=== PATIENT | female | born 1955 | race Caucasian/White ===

== ENCOUNTER 2016-06-28 16:38 | Emergency (ER) | payer SELFPAY ==
[2016-06-28 17:05] LABS: #Basophils 0.1 thou/uL (0.0-0.2); #Eosinphils 0.3 thou/uL (0.0-0.7); #Lymphocytes 2.6 thou/uL (1.20-3.40); #Monocytes 0.7 thou/uL (0.11-0.59); #Neutrophils 3.7 thou/uL (1.40-6.50); %Basophils 0.9 % (0.0-1.0); %Eosinophils 3.5 % (0.0-10.0); %Monocytes 9.6 % (0.0-10.0); Mean Platelet Volume 5.9 fL (7.4-10.4); Red Blood Cell (RBC) Count 4.38 mill/uL (4.20-5.40); White Blood Cell (WBC) Count 7.3 thou/uL (4.8-10.8)
[2016-06-28 17:20] LABS: ALT (SGPT) 9 U/L (0-55); AST (SGOT) 16 U/L (5-34); Alkaline Phosphatase 94 U/L (40-150); Anion Gap 13 mmol/L (10-20); BUN (Urea Nitrogen) 13 mg/dL (9.8-20.1); Bilirubin, Total 0.3 mg/dL (0.2-1.2); CK (CPK) 68 U/L (29-168); Calc. Creatinine Clearance 0 mL/min (70-130); Calcium 9.4 mg/dL (7.8-10.44); Carbon Dioxide 26 mmol/L (23-31); Chloride 106 mmol/L (98-107); Estimated GFR-MDRD 45; Globulin 3.1 g/dL (2.4-3.5); Protein, Total 7.2 g/dL (5.8-8.1)
[2016-06-28 17:22] LABS: Troponin I 0.026 ng/mL (< 0.028)
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
--- NOTE | 2016-06-28 23:37 | RAD ---
PORTABLE CHEST: Date: 06-28-16 An AP portable film at 1655 is compared with 01-10-16 study. FINDINGS: COPD is present with flattening of the diaphragm. The lungs are clear. No infiltrate or effusion w as present. There is no congestion of vessels. Median sternotomy features alphonso prior surgery. The tracheal is midline. IMPRESSION: No acute thoracic findings. COPD. POS: HOME
== END 2016-06-28 17:39 | disposition home or self-care (01) ==
LOC: BURERS 16:38
DX: R06.00 Dyspnea, unspecified (principal); E78.5 Hyperlipidemia, unspecified; I10 Essential (primary) hypertension; F17.210 Nicotine dependence, cigarettes, uncomplicated; Z98.51 Tubal ligation status
CPT/HCPCS: 36415; 71010; 80053; 82550; 82553; 84484; 85025; 93005; 94760

== ENCOUNTER 2019-06-06 12:26 | Emergency (ER) | payer SELFPAY ==
[2019-06-06] MEDS ORDERED: HYDROcodone/Acetaminophen 5/325 mg Tablet ONE (12:51)
[2019-06-06] MEDS ORDERED: Ibuprofen 200 MG TAB ONE (12:52)
--- NOTE | 2019-06-06 17:40 | RAD ---
RIGHT SHOULDER THREE VIEWS: 06/06/19 An impacted fracture of the surgical neck of the humerus is noted as well as a fracture of the greate r tubercle. Neither of these were present on a chest x-ray done earlier this year. There is no disloc ation. There is no AC joint widening. IMPRESSION: Impacted humeral neck fracture and greater tubercle fracture. Findings discussed with Dr. Bourgeois at 1313 on 06/06/19. POS: HOME
== END 2019-06-06 13:26 | disposition home or self-care (01) ==
LOC: BURERS 12:26
DX: S42.214A Unspecified nondisplaced fracture of surgical neck of right humerus, initial encounter for closed fracture (principal); I10 Essential (primary) hypertension; F17.210 Nicotine dependence, cigarettes, uncomplicated; I25.2 Old myocardial infarction; I25.10 Atherosclerotic heart disease of native coronary artery without angina pectoris; Z86.73 Personal history of transient ischemic attack (TIA), and cerebral infarction without residual deficits; W01.0XXA Fall on same level from slipping, tripping and stumbling without subsequent striking against object, initial encounter

== ENCOUNTER 2019-06-09 12:59 | Emergency (ER) | payer SELFPAY ==
[2019-06-09 14:19] LABS: #Eosinphils 0.3 thou/uL (0.0-0.7); #Lymphocytes 1.3 thou/uL (1.20-3.40); #Monocytes 0.7 thou/uL (0.11-0.59); #Neutrophils 5.2 thou/uL (1.40-6.50); %Basophils 0.6 % (0.0-1.0); %Eosinophils 3.4 % (0.0-10.0); %Lymphocytes 17.4 % (21.0-51.0); %Monocytes 9.7 % (0.0-10.0); %Neutrophils 68.9 % (42.0-75.0); Mean Corpuscular HGB CONC 33.7 g/dL (32.0-36.0); Mean Corpuscular Hemoglobin 33.1 pg (27.0-31.0); Mean Corpuscular Volume 98.3 fL (78.0-98.0); Platelet Count 285 thou/uL (130-400); RBC Distribution Width 12.5 % (11.5-14.5); Red Blood Cell (RBC) Count 3.92 mill/uL (4.20-5.40); White Blood Cell (WBC) Count 7.5 thou/uL (4.8-10.8)
[2019-06-09 14:33] LABS: ALT (SGPT) 9 U/L (8-55); AST (SGOT) 17 U/L (5-34); Albumin 3.7 g/dL (3.4-4.8); Alkaline Phosphatase 85 U/L (40-110); Anion Gap 15 mmol/L (10-20); BUN (Urea Nitrogen) 23 mg/dL (9.8-20.1); Bilirubin, Total 0.6 mg/dL (0.2-1.2); Calc. Creatinine Clearance 0 mL/min (70-130); Carbon Dioxide 21 mmol/L (23-31); Chloride 105 mmol/L (98-107); Estimated GFR-MDRD 34; Globulin 2.8 g/dL (2.4-3.5); Glucose 100 mg/dL (80-115); Protein, Total 6.5 g/dL (6.0-8.3); Sodium 137 mmol/L (136-145)
[2019-06-09 14:42] LABS: Bilirubin Small (Negative); Blood, Urine Small (Negative); Clarity Slightly Cloudy (Clear); Glucose, Urine (Dipstick) Negative (Negative); Leukocyte Negative (Negative); Nitrite Negative (Negative); Protein, Urine (Dipstick) 30 mg/dL (Neg-Trace)
[2019-06-09 14:56] LABS: Bacteria/HPF Rare-Few HPF (None Seen); Epithelial Cast None Seen LPF (None Seen); Mucous/LPF 1+ LPF (<2+); Oval Fat Bodies/HPF None Seen HPF (None Seen); RBC/HPF 0-3 HPF (0-3); Renal Epithelial 0-3 HPF (None Seen); Sperm/HPF None Seen HPF (None Seen); Squamous Epithelial None Seen HPF (0-3); Transitional Epithelial None Seen HPF (None Seen); Trichomonas/HPF None Seen HPF (None Seen); Yeast-Budding None Seen HPF (None Seen); Yeast-Hyphae None Seen HPF (None Seen)
[2019-06-09 14:57] LABS: Broad Cast None Seen LPF (None Seen); Calcium Oxalate Crystals None Seen HPF (None Seen); Cellular Cast None Seen LPF (None Seen); Fatty Cast None Seen LPF (None Seen); Other Casts None Seen LPF (None Seen); Red Blood Cell Cast None Seen LPF (None Seen); Triple Phosphate Crystal None Seen HPF (None Seen); Unclassified Crystals None Seen HPF (None Seen); Waxy Cast None Seen LPF (None Seen); White Blood Cell Cast 0-3 LPF (None Seen)
--- NOTE | 2019-06-09 16:46 | CT ---
CT OF THE BRAIN WITHOUT CONTRAST: 06/09/19 Comparison is made with the prior study dated 11/23/15. There has been no significant interval change. Patchy hyperlucency is seen throughout the deep white matter consistent with chronic microvascular ischemia. There are a few areas that are more punctate h ypolucencies, particularly around the left basal ganglia, left insula and left thalamus, that are mos t likely small lacunar infarcts. These were all present before. There is no intracranial bleeding or mass. The skull appears intact and the visible paranasal sinuses are clear. A small ovoid lucency in the left occipital bone is longstanding and has not changed over time. It is of no concern. IMPRESSION: Chronic ischemic changes as noted but no acute intracranial findings. A subtle acute stroke would be missed by this study and best detected by MRI. POS: HOME
--- NOTE | 2019-06-09 16:48 | RAD ---
PORTABLE CHEST: 06/09/19 An AP portable film at 1410 is compared with a 09/10/18 study. The heart is normal in size and the lungs are clear. They are mildly hyperexpanded as usual. There is no focal infiltrate or effusion present. IMPRESSION: No acute thoracic findings. POS: HOME
== END 2019-06-09 15:30 | disposition home or self-care (01) ==
LOC: BURERS 12:59
DX: N39.0 Urinary tract infection, site not specified (principal); N28.9 Disorder of kidney and ureter, unspecified; S40.021D Contusion of right upper arm, subsequent encounter; R41.82 Altered mental status, unspecified; I25.10 Atherosclerotic heart disease of native coronary artery without angina pectoris; E78.5 Hyperlipidemia, unspecified; I10 Essential (primary) hypertension; F17.210 Nicotine dependence, cigarettes, uncomplicated; Z79.899 Other long term (current) drug therapy; Z86.73 Personal history of transient ischemic attack (TIA), and cerebral infarction without residual deficits
CPT/HCPCS: 51701; 70450; 71045; 80053; 81003; 81015; 84484; 85025; 93005; 94760; 96360

== ENCOUNTER 2019-06-13 13:31 | Emergency (ER) | payer SELFPAY ==
[2019-06-13 14:11] LABS: #Eosinphils 0.3 thou/uL (0.0-0.7); #Monocytes 0.7 thou/uL (0.11-0.59); #Neutrophils 5.5 thou/uL (1.40-6.50); %Basophils 0.4 % (0.0-1.0); %Eosinophils 3.4 % (0.0-10.0); %Lymphocytes 13.6 % (21.0-51.0); %Monocytes 8.9 % (0.0-10.0); %Neutrophils 73.8 % (42.0-75.0); Hemoglobin 12.8 g/dL (12.0-16.0); Mean Corpuscular HGB CONC 33.5 g/dL (32.0-36.0); Mean Corpuscular Volume 95.7 fL (78.0-98.0); Mean Platelet Volume 5.6 fL (7.4-10.4); Platelet Count 252 thou/uL (130-400); RBC Distribution Width 12.5 % (11.5-14.5); Red Blood Cell (RBC) Count 3.99 mill/uL (4.20-5.40); White Blood Cell (WBC) Count 7.5 thou/uL (4.8-10.8)
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
[2019-06-13 14:23] LABS: ALT (SGPT) 9 U/L (8-55); AST (SGOT) 16 U/L (5-34); Albumin 3.7 g/dL (3.4-4.8); Alkaline Phosphatase 104 U/L (40-110); Anion Gap 19 mmol/L (10-20); BUN (Urea Nitrogen) 15 mg/dL (9.8-20.1); Bilirubin, Total 0.6 mg/dL (0.2-1.2); Calc. Creatinine Clearance 0 mL/min (70-130); Calcium 9.3 mg/dL (7.8-10.44); Carbon Dioxide 22 mmol/L (23-31); Chloride 104 mmol/L (98-107); Estimated GFR-MDRD 64; Globulin 3.2 g/dL (2.4-3.5); Glucose 95 mg/dL (80-115); Potassium 3.7 mmol/L (3.5-5.1); Protein, Total 6.9 g/dL (6.0-8.3); Sodium 141 mmol/L (136-145)
--- NOTE | 2019-06-13 14:53 | RAD ---
RIGHT FOOT RADIOGRAPH THREE VIEWS: 06/13/2019 HISTORY: A 64-year-old female with forefoot pain. FINDINGS: No fracture, periostitis or destructive osseous lesion identified. No high grade DJD. There is diffus e osteopenia. IMPRESSION: 1. Osteopenia. 2. Otherwise negative. POS: JUAN
== END 2019-06-13 14:40 | disposition home or self-care (01) ==
LOC: BURERS 13:31
DX: S00.31XA Abrasion of nose, initial encounter (principal); S00.211A Abrasion of right eyelid and periocular area, initial encounter; S00.81XA Abrasion of other part of head, initial encounter; Z86.73 Personal history of transient ischemic attack (TIA), and cerebral infarction without residual deficits; I25.10 Atherosclerotic heart disease of native coronary artery without angina pectoris; E78.5 Hyperlipidemia, unspecified; I10 Essential (primary) hypertension; F17.210 Nicotine dependence, cigarettes, uncomplicated; Z79.899 Other long term (current) drug therapy; W19.XXXA Unspecified fall, initial encounter
CPT/HCPCS: 36415; 70450; 80053; 84484; 85025; 93005

== ENCOUNTER 2019-11-13 09:09 | Emergency (ER) | payer MEDICARE ==
[2019-11-13 09:46] LABS: #Eosinphils 0.1 thou/uL (0.0-0.7); #Lymphocytes 1.4 thou/uL (1.20-3.40); #Monocytes 0.5 thou/uL (0.11-0.59); #Neutrophils 2.9 thou/uL (1.40-6.50); %Basophils 0.8 % (0.0-1.0); %Eosinophils 1.7 % (0.0-10.0); %Lymphocytes 28.6 % (21.0-51.0); %Monocytes 10.2 % (0.0-10.0); %Neutrophils 58.8 % (42.0-75.0); Hemoglobin 13.6 g/dL (12.0-16.0); Mean Corpuscular Hemoglobin 32.5 pg (27.0-31.0); Mean Corpuscular Volume 98.3 fL (78.0-98.0); Platelet Count 135 thou/uL (130-400); RBC Distribution Width 12.1 % (11.5-14.5); Red Blood Cell (RBC) Count 4.18 mill/uL (4.20-5.40); White Blood Cell (WBC) Count 4.9 thou/uL (4.8-10.8)
[2019-11-13 09:56] LABS: ALT (SGPT) 8 U/L (8-55); AST (SGOT) 20 U/L (5-34); Albumin 3.9 g/dL (3.4-4.8); Alkaline Phosphatase 77 U/L (40-110); Anion Gap 13 mmol/L (10-20); BUN (Urea Nitrogen) 18 mg/dL (9.8-20.1); Bilirubin, Total 0.5 mg/dL (0.2-1.2); Calc. Creatinine Clearance 0 mL/min (70-130); Carbon Dioxide 24 mmol/L (23-31); Chloride 106 mmol/L (98-107); Estimated GFR-MDRD 58; Globulin 2.7 g/dL (2.4-3.5); Glucose 94 mg/dL (80-115); Protein, Total 6.6 g/dL (6.0-8.3); Sodium 139 mmol/L (136-145)
--- NOTE | 2019-11-13 10:08 | RAD ---
SINGLE VIEW OF THE CHEST: COMPARISON: 06/09/2019. HISTORY: Dyspnea. FINDINGS: A single view of the chest shows a normal-sized cardiomediastinal silhouette. The patient is status post sternotomy. Hyperexpansion of the lungs may be secondary to COPD. There is no evidence of cons olidation, mass, or pleural effusion. IMPRESSION: No evidence of acute cardiopulmonary disease. POS: EAA
== END 2019-11-13 10:49 | disposition home or self-care (01) ==
LOC: BURERS 09:09
DX: I95.1 Orthostatic hypotension (principal); I25.10 Atherosclerotic heart disease of native coronary artery without angina pectoris; E78.5 Hyperlipidemia, unspecified; I10 Essential (primary) hypertension; I25.2 Old myocardial infarction; F17.210 Nicotine dependence, cigarettes, uncomplicated; Z79.899 Other long term (current) drug therapy; Z86.73 Personal history of transient ischemic attack (TIA), and cerebral infarction without residual deficits
CPT/HCPCS: 36415; 71045; 80053; 83880; 84484; 85025; 93005

== ENCOUNTER 2020-03-25 14:19 | Emergency (ER) | payer MEDICARE ==
[~2020-03-25 14:19] MED LIST: Iopamidol 370 76% 100 ML VIAL ONE
[2020-03-25 15:25] LABS: #Basophils 0.1 thou/uL (0.0-0.2); #Eosinphils 0.2 thou/uL (0.0-0.7); #Lymphocytes 1.7 thou/uL (1.20-3.40); #Monocytes 0.5 thou/uL (0.11-0.59); #Neutrophils 3.4 thou/uL (1.40-6.50); %Basophils 1.1 % (0.0-1.0); %Eosinophils 2.6 % (0.0-10.0); %Monocytes 8.6 % (0.0-10.0); %Neutrophils 58.7 % (42.0-75.0); Hemoglobin 14.9 g/dL (12.0-16.0); Mean Corpuscular HGB CONC 31.2 g/dL (32.0-36.0); Mean Corpuscular Hemoglobin 31.2 pg (27.0-31.0); Mean Platelet Volume 6.5 fL (7.4-10.4); Platelet Count 169 thou/uL (130-400); RBC Distribution Width 12.6 % (11.5-14.5); Red Blood Cell (RBC) Count 4.79 mill/uL (4.20-5.40); White Blood Cell (WBC) Count 5.9 thou/uL (4.8-10.8)
[2020-03-25 15:28] LABS: Bilirubin Negative (Negative); Blood, Urine Trace (Negative); Clarity Cloudy (Clear); Glucose, Urine (Dipstick) Negative (Negative); Ketone, Urine Negative (Negative); Leukocyte Negative (Negative); Nitrite Negative (Negative); Protein, Urine (Dipstick) Trace mg/dL (Neg-Trace); Specific Gravity, Urine 1.025 (1.005-1.030)
[2020-03-25] MEDS ORDERED: Ondansetron PF 4 MG/2 ML Vial ONE (15:38)
[2020-03-25] MEDS ORDERED: Morphine 4 MG/ML VIAL ONE (15:38)
[2020-03-25 15:43] LABS: ALT (SGPT) 13 U/L (8-55); AST (SGOT) 16 U/L (5-34); Albumin 4.2 g/dL (3.4-4.8); Alkaline Phosphatase 107 U/L (40-110); Anion Gap 16 mmol/L (10-20); BUN (Urea Nitrogen) 14 mg/dL (9.8-20.1); Bilirubin, Total 0.4 mg/dL (0.2-1.2); Calc. Creatinine Clearance 0 mL/min (70-130); Calcium 9.3 mg/dL (7.8-10.44); Carbon Dioxide 26 mmol/L (23-31); Chloride 103 mmol/L (98-107); Estimated GFR-MDRD 57; Globulin 3.4 g/dL (2.4-3.5); Glucose 99 mg/dL (80-115); Lipase 23 U/L (8-78); Potassium 5.1 mmol/L (3.5-5.1); Protein, Total 7.6 g/dL (6.0-8.3); Sodium 140 mmol/L (136-145)
[2020-03-25 15:49] LABS: Bacteria/HPF 3+ HPF (None Seen); RBC/HPF 0-3 HPF (0-3); Squamous Epithelial 0-3 HPF (0-3)
[2020-03-25] MEDS ORDERED: Nitroglycerin 2% Ointment 1 INCH/1 GM Packet ONE (16:59)
[2020-03-25] MEDS ORDERED: Aspirin Chewable 81 MG TAB ONE ×3 (16:59)
--- NOTE | 2020-03-25 19:44 | RAD ---
PORTABLE CHEST: Date: 03-25-2020 An AP portable film at 1538 is compared with prior studies dated 11-13-2019, 06-09-19, and 09-10-18. FINDINGS: The lungs are mildly hyperexpanded as usual. There is no lobar infiltrate or effusion. There is some mild diffuse prominence of lung markings that has not really changed over time. There is an equivocal density in the left upper lobe that is about 1 cm in size occurring at the over lap of several structures. I cannot tell if this is a small nodule in the lung, or merely overlap of multiple bony structures. I do not see anything like it on the prior three films, even in retrospect. The heart size is normal. Median sternotomies are present from prior surgery. There is no vascular c ongestion, edema, or effusion. IMPRESSION: 1. No definite acute findings. 2. Equivocal 1 cm density in the left upper lobe, not present on prior films. It is at the overlap si te of several bones so it is likely a summation shadow. Nevertheless, I feel there should be at least a follow up PA film done electively on this patient, to be certain. Code T POS: HOME
--- NOTE | 2020-03-25 20:06 | CT ---
CT ABDOMEN PELVIS WITH CONTRAST: Date: 03-25-[address] of the abdomen and pelvis was done after giving IV contrast. Comparison: 09-17-15 FINDINGS: As will be seen below, there are many soft findings on this patient's CT scan, however, virtually pre sent to some degree in 2016. The differences between the two scans is only slight. There is no lobar infiltrate or effusion in the lung bases. Some atelectatic change and perhaps fibro sis is present. The liver, spleen, adrenal glands, and kidneys showed no acute findings. There may be some sludge in the gallbladder, however, its appearance is exactly the same as before. Ultrasound wo uld be confirmatory. Additionally regarding the pancreas, the main pancreatic duct is mildly prominen t in size. Previously it was about 3 mm in diameter and today it was measured at 3.9 mm. One could se e it traveling all the way to the duodenum. The duodenum itself suggests that there may be some mild thickening here and it is fluid filled, however, this appearance is really no different than before e ither. The aorta shows dense arterial sclerotic calcification with increasing plaque and thrombus for mation compared to the prior exam. There is probably some significant plaque at the origin of the mes enteric arteries and in their proximal segments. There is some nonspecific fluid filled loops of distal small bowel, but none are significantly dilate d to suggest obstruction. The colon shows no dilation or wall thickening. No free air or free fluid w as present. CT of the pelvis shows no pelvic masses, fluid collections, or inflammatory changes. The visible bony structures appeared intact. IMPRESSION: 1. Possible sludge in the gallbladder, but exam seems no different in appearance compared to 2016. 2. Mild prominence of the pancreatic duct, though one could argue it was marginally so in 2016. It wa s about 3 mm wide before and about 3.9 mm today. 3. Nonspecific fluid filled loops of small bowel without dilation. Overall, changes since 2016 are only slight. Further follow up could be needed depending upon labs an d clinical symptoms. Report discussed with Dr. Conroy at 1627 on 03-25-2020. POS: HOME
== END 2020-03-25 17:16 | disposition short-term general hospital (02) ==
LOC: BURERS 14:19
DX: R07.89 Other chest pain (principal); R79.89 Other specified abnormal findings of blood chemistry; E78.5 Hyperlipidemia, unspecified; I10 Essential (primary) hypertension; F17.210 Nicotine dependence, cigarettes, uncomplicated; I25.2 Old myocardial infarction
CPT/HCPCS: 36415; 71045; 74177; 80053; 81003; 81015; 82553; 83605; 83690; 84484; 85025; 93005; 96374; 96375; J2270; J2405; Q9967

== ENCOUNTER 2020-04-05 18:07 | Emergency (ER) | payer MEDICARE ==
[2020-04-05 19:10] LABS: #Basophils 0.1 thou/uL (0.0-0.2); #Eosinphils 0.1 thou/uL (0.0-0.7); #Lymphocytes 1.8 thou/uL (1.20-3.40); #Monocytes 0.8 thou/uL (0.11-0.59); %Basophils 1.1 % (0.0-1.0); %Eosinophils 1.5 % (0.0-10.0); %Lymphocytes 18.4 % (21.0-51.0); %Monocytes 8.4 % (0.0-10.0); %Neutrophils 70.6 % (42.0-75.0); Mean Corpuscular Hemoglobin 31.4 pg (27.0-31.0); Mean Corpuscular Volume 98.2 fL (78.0-98.0); Mean Platelet Volume 7.7 fL (7.4-10.4); Platelet Count 165 thou/uL (130-400); Red Blood Cell (RBC) Count 4.46 mill/uL (4.20-5.40)
[2020-04-05 19:11] LABS: ALT (SGPT) 13 U/L (8-55); AST (SGOT) 16 U/L (5-34); Alkaline Phosphatase 88 U/L (40-110); Anion Gap 20 mmol/L (10-20); BUN (Urea Nitrogen) 31 mg/dL (9.8-20.1); Bilirubin, Total 0.7 mg/dL (0.2-1.2); Calc. Creatinine Clearance 0 mL/min (70-130); Calcium 9.1 mg/dL (7.8-10.44); Carbon Dioxide 24 mmol/L (23-31); Chloride 98 mmol/L (98-107); Estimated GFR-MDRD 29; Globulin 3.2 g/dL (2.4-3.5); Glucose 127 mg/dL (80-115); Potassium 3.3 mmol/L (3.5-5.1); Protein, Total 7.2 g/dL (6.0-8.3); Sodium 139 mmol/L (136-145)
--- NOTE | 2020-04-05 19:13 | CT ---
CT OF THE BRAIN WITHOUT CONTRAST: 04/05/20 Comparison is made with the prior study dated 06/13/19. No intracranial bleeding was seen. The ventricles are normal in size for age and atrophy. Deep white matter lucency is typical of chronic microvascular ischemia and there are a few punctate areas within it that are probably tiny lacunar infarcts. No mass or edema was seen. IMPRESSION: Atrophy and chronic ischemic changes but no acute intracranial findings. Exam unchanged from 2019. Preliminary report called to Alexis in ER at 1905 on 04/05/20. POS: HOME
--- NOTE | 2020-04-05 19:15 | RAD ---
PORTABLE CHEST: 04/05/20 An AP portable film at 1900 is compared with a 03/25/20 study. The lungs are hyperexpanded as usual. There are no focal infiltrates or effusions. The heart size is normal. An equivocal density seen in the left upper chest on the prior exam is not repeated today. I do not see any mas here. IMPRESSION: No acute finding. POS: HOME
[2020-04-05 19:28] LABS: CKMB 1.3 ng/mL (0-6.6)
[2020-04-05 21:09] LABS: Anion Gap 16 mmol/L (10-20); BUN (Urea Nitrogen) 28 mg/dL (9.8-20.1); Calc. Creatinine Clearance 0 mL/min (70-130); Calcium 8.4 mg/dL (7.8-10.44); Carbon Dioxide 24 mmol/L (23-31); Chloride 103 mmol/L (98-107); Estimated GFR-MDRD 36; Glucose 106 mg/dL (80-115); Potassium 3.1 mmol/L (3.5-5.1); Sodium 140 mmol/L (136-145)
[2020-04-05 21:13] LABS: Troponin I 0.064 ng/mL (< 0.028)
== END 2020-04-05 22:14 | disposition short-term general hospital (02) ==
LOC: BURERS 18:07
DX: R55 Syncope and collapse (principal); I25.10 Atherosclerotic heart disease of native coronary artery without angina pectoris; I25.2 Old myocardial infarction; F17.210 Nicotine dependence, cigarettes, uncomplicated; Z86.73 Personal history of transient ischemic attack (TIA), and cerebral infarction without residual deficits; Z79.899 Other long term (current) drug therapy; Z79.01 Long term (current) use of anticoagulants
CPT/HCPCS: 70450; 71045; 80053; 82553; 83605; 83880; 84484; 85025; 93005; 96360

== ENCOUNTER 2020-04-11 18:31 | Inpatient (IN) | payer MEDICARE ==
[2020-04-12 02:36] VITALS: BMI 13.7
[2020-04-12] MEDS ORDERED: ALPRAZolam 0.5 MG TAB PO PRN (02:50)
[2020-04-12] MEDS: Lisinopril 10 MG TAB PO SCH (10:27)
[2020-04-12] MEDS: Metoprolol Tartrate 25 MG TAB PO SCH (10:27)
[2020-04-12] MEDS: Apixaban 5 MG TAB PO SCH ×2 (10:27→21:11)
[2020-04-12] MEDS: Aspirin Chewable 81 MG TAB PO SCH (10:28)
[2020-04-12] MEDS ORDERED: Cefdinir 300 MG CAP PO SCH (11:00)
--- NOTE | 2020-04-12 16:16 | HP ---
HISTORY OF PRESENT ILLNESS: 64-year-old female, arrived from [facility] for continued observation and evaluation and physical therapy related to declining functional and cognitive status with UTI. Her initial admission was related to a brief syncopal episode witnessed by her [id number] who was at that time helping her out of the bathtub. She has a history of coronary artery disease with ischemic cardiomyopathy and CVAs without obvious residual motor deficit. Her estimated ejection fraction is 30% to 40%. Since she had only recently been admitted in February for chest pain, cardiac work up was not repeated. During her February admission she underwent a nuclear stress test which showed severe anterior wall hypokinesis. She also has a history of dementia, and she is at present confused and delusional, asking why we kidnapped her, asking staff members if they're "in on it," it being the plot to kidnap her, asking repeatedly to be allowed to go home. She lives in a travel trailer behind her son's house. Her daughter and son-in-law both work, and so are unable to supervise her closely, Until recently, they felt she was able to maintain limited independence safely in this way, as they provided her meals and assisted her with bathing, but she has had a recent decline in her functional and cognitive status with worsening confusion and visual hallucinations. PAST MEDICAL HISTORY: CAD, hyperlipidemia, hypertension, CVA x3, pneumothorax in 2016, acute CO, tobacco dependency, chronic ischemic heart disease. PAST SURGICAL HISTORY: CABG x1, multiple PTCA and stents, and tubal ligation. ALLERGIES: CODEINE. MEDICATIONS: 1. Lisinopril 10 mg daily. 2. Eliquis 5 mg b.i.d. 3. Metoprolol 12.5 mg p.o. daily. 4. Cefdinir 300 mg p.o. b.i.d. 5. Atorvastatin 20 mg daily. 6. Aspirin 81 mg. CODE STATUS: Full Code SOCIAL HISTORY: The patient lives alone in a travel trailer behind her son and [id number]'s home. She smokes one pack a day for the past 40 years. She is ambulatory without assistive device. She does not use alcohol or drugs. FAMILY HISTORY: Noncontributory. REVIEW OF SYSTEMS: Deferred. The patient is unable to answer questions about her current state of health. PHYSICAL EXAMINATION: GENERAL: Alert, oriented to person only, confused, anxious, thin and frail, appears older than her stated age. EYES: No discharge. Conjunctiva clear. PERRLA, EOMs intact LUNGS: Clear to auscultation. CARDIAC: Regular rate and rhythm. No murmur, rubs, or gallops. ABDOMEN: Soft, nontender, nondistended. Normal bowel sounds present. MUSCULOSKELETAL: She has a full range of motion. Normal motor function. EXTREMITIES: No edema, clubbing, or cyanosis. NEUROLOGIC: CN II - IX intact, normal motor function LABORATORY DATA: H and H 13.6 and 39.4, WBC 7.2, platelet 118. Sodium 134, potassium 4.4, chloride 106, carbon dioxide 18, BUN is 15, creatinine 0.84, glucose 68, calcium 8.3, magnesium 1.8. Her urine culture shows positive E coli, sensitive to current antibiotic cefdinir. IMPRESSION AND PLAN: Worsening dementia versus delirium related to urinary tract infection. We will continue to treat her for her urinary tract infection and observe her ability to participate in physical therapy. We expect her to be here at least for the perceivable future. We will discuss with family long-term plans for discharge. Job ID: [id number] [facility]
[2020-04-12] MEDS ORDERED: Atorvastatin Calcium 10 MG TAB PO SCH (21:00)
[2020-04-12] MEDS: Cefdinir 300 MG CAP PO SCH (21:11)
[2020-04-13 06:20] VITALS: TEMP 97.6
[2020-04-13] MEDS: Aspirin Chewable 81 MG TAB PO SCH (08:46)
[2020-04-13] MEDS: Metoprolol Tartrate 25 MG TAB PO SCH (08:46)
[2020-04-13] MEDS: Apixaban 5 MG TAB PO SCH (08:46)
[2020-04-13] MEDS: Cefdinir 300 MG CAP PO SCH (08:46)
[2020-04-13] MEDS: Lisinopril 10 MG TAB PO SCH (08:47)
[2020-04-13 08:49] VITALS: BP 140/80
--- NOTE | 2020-04-13 22:50 | DIS ---
DATE OF ADMISSION: 04/11/2020 DATE OF DISCHARGE: 04/13/2020 DIAGNOSES: Syncope, dementia, TIA, UTI DISPOSITION: Discharged home with family, who was offered but declined home health. They were also offered opportunity to delay her discharge and pursue long-term care admission, they declined. They were strongly advised to supervise patient closely as she is not safe to be left alone. DIET: Regular diet. ACTIVITY: As tolerated. ALLERGIES: CODEINE. CODE STATUS: Full code. MEDICATIONS: 1. Metoprolol 12.5 b.i.d. 2. Atorvastatin 20 mg at bedtime. 3. Eliquis 5 mg b.i.d. 4. Lisinopril 10 mg daily. 5. Aspirin 81 mg daily. 6. Cefdinir 300 mg p.o. q.12 x7 days. 7. Clonidine Transdermal topical patch 0.2 mg daily, change every 7 days FOLLOWUP: Recommended follow up with PCP and Cardiology, Dr. Akhtar. HOSPITAL COURSE: 64-year-old female transferred from [facility], where she was evaluated for witnessed syncopal episode on 04/05/2020. [id number] reports she became unresponsive and was eased to the floor after which they called 911. She was transferred from [facility] ER to [facility] for evaluation. Her brain CT showed chronic ischemic changes, unchanged from prior 2018 exam, but no acute findings. Her chest x-ray also showed chronic changes, but no infiltrate or effusion. After dehydration was corrected, her slightly elevated creatinine normalized. Her troponin I was elevated at 0.181. , Cardiology, was consulted and notes her troponin I is always slightly elevated. She was only recently admitted for chest pain r/o ACS on 03/26/2020, and at that time Cardiolite stress test and a nuclear medicine imaging showed severe anterior wall hypokinesis with a reduced ejection fraction of 35% to 40%. Dr Akhtar did not think her symptoms evidenced an arrhythmia, and patient denies associated chest pain; symptoms seem to suggest possible TIA. Complicating the diagnostic picture, patient has h/o dementia, and according to the family, has recently experienced decline in cognitive status. However, she has no physical deficits. She ambulates without assistive device and transfers independently. In fact, during her 2 night stay, she required close and mostly continuous observation as she would not stay in bed, and would not call for assistance to get out of bed. She was agitated and confused, and insisted that she had been kidnapped or asked why her family had brought her here, and repeatedly asked staff to let her go home. On her first night, she sat in the nurse's station in a wheelchair until 3:00 a.m. After she was given alprazolam 0.5 mg she did finally rest for a few hours. The second night, she was trialed on quetiapine 25 mg at bedtime, which did not seem to help her rest much at all. Unfortunately, her functional status clearly does not qualify her for any physical therapy or rehab services, and her cognitive status limits her ability to follow directions or participate in any meaningful way. Therefore, it was determined that our SNF could be of no benefit to her, and family was consulted to discuss possible LTC admission. They declined to explore LTC options, they also were offered and declined Home Health referral. Her adult son Marilin and his are her primary caregivers, and she lives in a travel trailer behind their home. Donald agrees to supervise her closely upon discharge, but family is understandably unhappy that no one has been able to explain her worsening confusion and cognitive decline. FOLLOWUP: Followup with her PCP, Dr. Navarrete to determine possible additional medications that might help with her emotional distress, agitation, confusion, if they want home health services, or to explore joint terminal attack controller care options. Job ID: [id number]
== END 2020-04-13 11:18 | disposition home or self-care (01) | DRG 884 ==
LOC: BURMED 21:22
PROVIDERS: ADMIT Family Medicine; ATTEND Family Medicine
DX: F03.90 Unspecified dementia, unspecified severity, without behavioral disturbance, psychotic disturbance, mood disturbance, and anxiety (principal); N39.0 Urinary tract infection, site not specified; G45.9 Transient cerebral ischemic attack, unspecified; I25.5 Ischemic cardiomyopathy; I25.10 Atherosclerotic heart disease of native coronary artery without angina pectoris; E78.5 Hyperlipidemia, unspecified; R55 Syncope and collapse; E86.0 Dehydration; R77.8 Other specified abnormalities of plasma proteins; Z79.82 Long term (current) use of aspirin; Z86.73 Personal history of transient ischemic attack (TIA), and cerebral infarction without residual deficits; I25.2 Old myocardial infarction; Z95.1 Presence of aortocoronary bypass graft; Z95.5 Presence of coronary angioplasty implant and graft; Z98.51 Tubal ligation status; Z88.6 Allergy status to analgesic agent

== ENCOUNTER 2021-04-04 07:33 | Emergency (ER) | payer MEDICARE ==
[2021-04-04 08:29] LABS: #Lymphocytes 0.5 thou/uL (1.20-3.40); #Monocytes 0.7 thou/uL (0.11-0.59); #Neutrophils 7.3 thou/uL (1.40-6.50); %Basophils 0.3 % (0.0-1.0); %Eosinophils 0.1 % (0.0-10.0); %Lymphocytes 5.9 % (21.0-51.0); %Monocytes 8.3 % (0.0-10.0); %Neutrophils 85.3 % (42.0-75.0); Mean Corpuscular HGB CONC 33.5 g/dL (32.0-36.0); Mean Corpuscular Hemoglobin 31.3 pg (27.0-31.0); Mean Corpuscular Volume 93.6 fL (78.0-98.0); Mean Platelet Volume 7.5 fL (7.4-10.4); Platelet Count 124 thou/uL (130-400); Red Blood Cell (RBC) Count 4.48 mill/uL (4.20-5.40); White Blood Cell (WBC) Count 8.5 thou/uL (4.8-10.8)
[2021-04-04 08:35] LABS: ALT (SGPT) 14 U/L (8-55); AST (SGOT) 22 U/L (5-34); Albumin 3.8 g/dL (3.4-4.8); Alkaline Phosphatase 75 U/L (40-110); Anion Gap 13 mmol/L (10-20); BUN (Urea Nitrogen) 11 mg/dL (9.8-20.1); Bilirubin, Total 0.9 mg/dL (0.2-1.2); Calc. Creatinine Clearance 0 mL/min (70-130); Calcium 9.2 mg/dL (7.8-10.44); Carbon Dioxide 25 mmol/L (23-31); Chloride 105 mmol/L (98-107); Glucose 125 mg/dL (80-115); Lipase 7 U/L (8-78); Potassium 3.9 mmol/L (3.5-5.1); Protein, Total 6.8 g/dL (5.8-8.1); Sodium 139 mmol/L (136-145)
[2021-04-04 08:53] LABS: CKMB 1.9 ng/mL (0-6.6)
[2021-04-04] MEDS ORDERED: Furosemide 100 MG/10 ML VIAL ONE (10:17)
[2021-04-04 11:21] LABS: Bilirubin Negative (Negative); Blood, Urine Small (Negative); Clarity Clear (Clear); Glucose, Urine (Dipstick) Negative (Negative); Ketone, Urine 15 mg/dL (Negative); Leukocyte Negative (Negative); Nitrite Negative (Negative); Protein, Urine (Dipstick) Negative (Neg-Trace); Urobilinogen 0.2 mg/dL (Less than 2); pH, Urine 6.5 (5.0-9.0)
[2021-04-04 11:22] LABS: Bacteria/HPF Rare-Few HPF (None Seen); Mucous/LPF 1+ LPF (<2+); RBC/HPF 0-3 HPF (0-3); Squamous Epithelial 0-3 HPF (0-3); WBC/HPF 0-3 HPF (0-3)
== END 2021-04-04 12:00 | disposition short-term general hospital (02) ==
LOC: BURERS 07:33
DX: I50.9 Heart failure, unspecified (principal); J44.9 Chronic obstructive pulmonary disease, unspecified; Z79.899 Other long term (current) drug therapy; Z79.01 Long term (current) use of anticoagulants; I25.10 Atherosclerotic heart disease of native coronary artery without angina pectoris; I25.2 Old myocardial infarction; F17.210 Nicotine dependence, cigarettes, uncomplicated
CPT/HCPCS: 71045; 80053; 81003; 81015; 82553; 83690; 83880; 84484; 85025; 93005; 96374; J1940

== ENCOUNTER 2021-07-18 13:56 | Emergency (ER) | payer MEDICARE ==
[2021-07-18 14:26] LABS: #Basophils 0.1 thou/uL (0.0-0.2); #Eosinphils 0.1 thou/uL (0.0-0.7); #Lymphocytes 1.9 thou/uL (1.20-3.40); #Monocytes 0.8 thou/uL (0.11-0.59); #Neutrophils 4.3 thou/uL (1.40-6.50); %Basophils 0.7 % (0.0-1.0); %Eosinophils 1.2 % (0.0-10.0); %Monocytes 10.6 % (0.0-10.0); %Neutrophils 60.5 % (42.0-75.0); Hemoglobin 13.7 g/dL (12.0-16.0); Mean Corpuscular HGB CONC 34.7 g/dL (32.0-36.0); Mean Corpuscular Hemoglobin 32.3 pg (27.0-31.0); Mean Corpuscular Volume 93.2 fL (78.0-98.0); Mean Platelet Volume 6.6 fL (7.4-10.4); Platelet Count 184 thou/uL (130-400); RBC Distribution Width 12.1 % (11.5-14.5); Red Blood Cell (RBC) Count 4.24 mill/uL (4.20-5.40); White Blood Cell (WBC) Count 7.1 thou/uL (4.8-10.8)
[2021-07-18 14:34] LABS: PTT 31.3 sec (22.9-36.1); Prothrombin Time 13.5 sec (12.0-14.7)
[2021-07-18 14:40] LABS: ALT (SGPT) 16 U/L (8-55); AST (SGOT) 25 U/L (5-34); Albumin 3.7 g/dL (3.4-4.8); Alkaline Phosphatase 80 U/L (40-110); Anion Gap 15 mmol/L (10-20); BUN (Urea Nitrogen) 16 mg/dL (9.8-20.1); Bilirubin, Total 0.6 mg/dL (0.2-1.2); Calc. Creatinine Clearance 0 mL/min (70-130); Calcium 9.5 mg/dL (7.8-10.44); Carbon Dioxide 23 mmol/L (23-31); Chloride 105 mmol/L (98-107); Globulin 3.2 g/dL (2.4-3.5); Glucose 98 mg/dL (80-115); Potassium 4.4 mmol/L (3.5-5.1); Protein, Total 6.9 g/dL (5.8-8.1); Sodium 139 mmol/L (136-145)
== END 2021-07-18 16:06 | disposition home or self-care (01) ==
LOC: BURERS 13:56
DX: S00.03XA Contusion of scalp, initial encounter (principal); I25.10 Atherosclerotic heart disease of native coronary artery without angina pectoris; I25.2 Old myocardial infarction; I11.0 Hypertensive heart disease with heart failure; I50.9 Heart failure, unspecified; E78.5 Hyperlipidemia, unspecified; J44.9 Chronic obstructive pulmonary disease, unspecified; Z87.891 Personal history of nicotine dependence; W06.XXXA Fall from bed, initial encounter
CPT/HCPCS: 36415; 70450; 72125; 80053; 82553; 84484; 85025; 85610; 85730; 93005; 94760

== ENCOUNTER 2021-07-21 09:57 | Emergency (ER) | payer MEDICARE ==
[2021-07-21 10:35] LABS: #Basophils 0.1 thou/uL (0.0-0.2); #Lymphocytes 1.3 thou/uL (1.20-3.40); #Monocytes 0.6 thou/uL (0.11-0.59); #Neutrophils 6.1 thou/uL (1.40-6.50); %Basophils 0.7 % (0.0-1.0); %Eosinophils 0.2 % (0.0-10.0); %Lymphocytes 16.6 % (21.0-51.0); %Monocytes 7.2 % (0.0-10.0); %Neutrophils 75.3 % (42.0-75.0); Hemoglobin 13.6 g/dL (12.0-16.0); Mean Corpuscular HGB CONC 34.5 g/dL (32.0-36.0); Mean Corpuscular Hemoglobin 32.4 pg (27.0-31.0); Mean Corpuscular Volume 93.9 fL (78.0-98.0); Mean Platelet Volume 6.8 fL (7.4-10.4); Platelet Count 203 thou/uL (130-400); RBC Distribution Width 12.1 % (11.5-14.5); Red Blood Cell (RBC) Count 4.21 mill/uL (4.20-5.40); White Blood Cell (WBC) Count 8.1 thou/uL (4.8-10.8)
[2021-07-21 11:09] LABS: INR-International Normal Ratio 1.1; PTT 28.6 sec (22.9-36.1); Prothrombin Time 14.2 sec (12.0-14.7)
[2021-07-21 11:16] LABS: ALT (SGPT) 19 U/L (8-55); AST (SGOT) 33 U/L (5-34); Albumin 4.1 g/dL (3.4-4.8); Alkaline Phosphatase 82 U/L (40-110); Anion Gap 17 mmol/L (10-20); BUN (Urea Nitrogen) 38 mg/dL (9.8-20.1); Bilirubin, Total 0.7 mg/dL (0.2-1.2); Calc. Creatinine Clearance 0 mL/min (70-130); Calcium 9.7 mg/dL (7.8-10.44); Carbon Dioxide 22 mmol/L (23-31); Chloride 107 mmol/L (98-107); Globulin 3.2 g/dL (2.4-3.5); Glucose 110 mg/dL (80-115); Potassium 4.4 mmol/L (3.5-5.1); Protein, Total 7.3 g/dL (5.8-8.1); Sodium 142 mmol/L (136-145)
[2021-07-21 11:41] LABS: Magnesium 2.1 mg/dL (1.6-2.6)
[2021-07-21 11:51] LABS: CKMB 6.9 ng/mL (0-6.6)
[2021-07-21] MEDS ORDERED: Magnesium 2 GM/50 ML BAG (IN WATER) ONE (12:06)
[2021-07-21 12:10] LABS: Bilirubin Negative (Negative); Blood, Urine Small (Negative); Clarity Clear (Clear); Glucose, Urine (Dipstick) Negative (Negative); Ketone, Urine 40 mg/dL (Negative); Leukocyte Negative (Negative); Nitrite Negative (Negative); Protein, Urine (Dipstick) > or equal to 300 mg/dL (Neg-Trace); Specific Gravity, Urine 1.025 (1.005-1.030); pH, Urine 6.5 (5.0-9.0)
[2021-07-21 12:27] LABS: Bacteria/HPF Rare-Few HPF (None Seen); RBC/HPF 0-3 HPF (0-3); Squamous Epithelial 0-3 HPF (0-3)
[2021-07-22 13:07] LABS: SARS-CoV-2 PCR by NAA Not Detected (NotDetected)
== END 2021-07-21 19:10 | disposition short-term general hospital (02) ==
LOC: BURERS 09:57
DX: R13.10 Dysphagia, unspecified (principal); Z20.822 Contact with and (suspected) exposure to COVID-19; I25.2 Old myocardial infarction; I25.10 Atherosclerotic heart disease of native coronary artery without angina pectoris; I11.0 Hypertensive heart disease with heart failure; I50.9 Heart failure, unspecified; E78.5 Hyperlipidemia, unspecified; Z86.73 Personal history of transient ischemic attack (TIA), and cerebral infarction without residual deficits; F17.200 Nicotine dependence, unspecified, uncomplicated
CPT/HCPCS: 70450; 71045; 80053; 82553; 82962; 83735; 84484; 85025; 85610; 85730; 93005; U0003; U0005; 36416; 51701; 81003; 81015; 96374; 36415-59; J3475